=== PATIENT | male | born 1985 | race Caucasian/White ===

== ENCOUNTER 2017-05-02 07:05 | Day surgery (SDC) | payer OTHER ==
[~2017-05-02] VITALS: Ht 172.7 cm; Wt 74.8 kg
[~2017-05-02 07:05] MED LIST: RITALIN LA30 MG PO
--- NOTE | 2017-05-02 09:54 | NUR ---
05/02/17 0954 Braeden Hernandes 0944 PATIENT O2 TITRATED TO ROOM AIR 0950 DR COOK AT BEDSIDE TALKING WITH PATIENT
[2017-05-02] MEDS ORDERED: HYCET 7.5 MG-3473 ML PO (10:49)
--- NOTE | 2017-05-02 11:51 | NUR ---
HAS AMB TO [facility]. TAKING PO WELL. RATES PAIN 3/10.
--- NOTE | 2017-05-30 15:11 | OR ---
[facility] [address], [place] [address] Signed DATE OF PROCEDURE: 05/02/17 PREOPERATIVE DIAGNOSIS: Chronic tonsillitis. POSTOPERATIVE DIAGNOSIS: Chronic tonsillitis. PROCEDURE: Tonsillectomy. SURGEON: Warner Cook MD. ANESTHESIA: General, orotracheal, Carmelita Ocasio CRNA HISTORY Mr. Gomez is a 32-year-old man with chronic tonsillitis. He had a small left peritonsillar abscess recently, which resolved with several courses of antibiotics. He is being taken to the operating for the above-mentioned procedures, operative procedure, and fin dings. DESCRIPTION OF PROCEDURE After informed consent, the patient was taken the operating room, placed in supine position where general orotracheal anesthesia was induced. The patient procedure were verified. The patient was repositioned. McIvor mouth gag placed into suspension. Headlight exam of the pharynx showed small non-acutely infected tonsils. The left tonsil was grasped with a tenaculum, removed from its fossa with mucosal sparing incision with coblation. There was a small abscess posteriorly identified during the dissection. This was completely drained. Same procedure on the right tonsil. Tonsils were sent to pathology. Bleeding was controlled with coblation mouth gag was removed, released for several minutes reinspection showed no bleeding points. The pharynx was suctioned clear of blood and secretions. Mouth gag was removed. The patient was awakened, extubated, transported to recovery room in good condition. No complications. BLOOD LOSS: Minimal. SPECIMEN TO PATHOLOGY DRAINS: No drains. Warner Cook MD Electronically Signed By: WARNER COOK MD 05/30/17 1511 PATIENT NAME: VIANNEY GOMEZ OPERATIVE REPORT DATE OF : 85 PHYSICIAN: WARNER COOK MD REPORT #: [id number] REPORT IS CONFIDENTIAL AND NOT TO BE RELEASED WITHOUT AUTHORIZATION [address] [address] Signed GC/Modl /[id number] cc: Obie Aguiar DO Electronically Signed By: WARNER COOK MD 05/30/17 1511 PATIENT NAME: VIANNEY GOMEZ OPERATIVE REPORT DATE OF : 85 PHYSICIAN: WARNER COOK MD REPORT #: [id number] REPORT IS CONFIDENTIAL AND NOT TO BE RELEASED WITHOUT AUTHORIZATION
== END 2017-05-02 11:45 | disposition home or self-care (01) ==
LOC: DS 07:05 → OPS 07:05 → DS 08:30 → OPS 08:30
PROVIDERS: Otolaryngology
PROC: 0CBPXZZ Excision of Tonsils, External Approach (ICD-10-PCS; principal; 2017-05-02 08:30)
DX: J35.01 Chronic tonsillitis (principal); J36 Peritonsillar abscess
CPT/HCPCS: 00170; J0330; J1100; J2250; J2405; J2704; J3010; J7120